=== PATIENT | female | born 1990 | race Caucasian/White ===

== ENCOUNTER → 2017-08-07 | Emergency (ER) | payer OTHER ==
[~2017-08-07] VITALS: Ht 167.6 cm; Wt 61.2 kg
[2017-08-07 11:39] VITALS: BP 113/81
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
== END | disposition home or self-care (01) ==
LOC: ER 11:34
DX: S61.211A Laceration without foreign body of left index finger without damage to nail, initial encounter (principal); S61.012A Laceration without foreign body of left thumb without damage to nail, initial encounter; W26.0XXA Contact with knife, initial encounter; Y93.89 Activity, other specified; Y92.89 Other specified places as the place of occurrence of the external cause; Y99.8 Other external cause status
CPT/HCPCS: 12001; 99283; A4606; Z7610